=== PATIENT | male | born 1970 | race Caucasian/White ===

== ENCOUNTER 2025-06-21 08:15 | Outpatient (CLI) | payer OTHER, SELFPAY ==
[2025-06-21 13:47] LABS: ALT 35 U/L (10-49); AST 25 U/L (<34); Albumin 4.4 g/dL (3.4-5.0); Alkaline Phosphatase 74 U/L (46-116); Anion Gap 9.4 mmol/L (3-11); BUN 14 mg/dL (9-23); Bilirubin, Total 0.60 mg/dL (0.2-1.2); CO2 27.6 mmol/L (20.0-31.0); Calcium 9.2 mg/dL (8.3-10.6); Chloride 105 mmol/L (98-107); Cholesterol 239 mg/dL (<200); Glucose 108 mg/dL (74-106); HDL Cholesterol 42 mg/dL (>40); Potassium 4.3 mmol/L (3.5-5.1); Sodium 142 mmol/L (136-145); Total Protein 7.3 g/dL (5.7-8.2)
== END 2025-06-21 08:16 | disposition home or self-care (01) ==
LOC: LBO 08:15
PROVIDERS: PCP Family Medicine; Visit Provider Family Medicine
DX: I10 Essential (primary) hypertension (principal)
CPT/HCPCS: 36415; 80053; 80061